=== PATIENT | male | born 1955 | race Caucasian/White ===

== ENCOUNTER 2017-05-15 07:15 | Day surgery (SDC) | payer BC ==
[2017-05-12 10:09] LABS: BASOPHILS 0.4 % (0-2); EOSINOPHILS 3.5 % (0-7); HEMATOCRIT 46.4 % (42.0-54.0); IMMATURE GRANULOCYTES 0.4 % (0-5); LYMPHOCYTES 29.9 % (15-50); MCHC 34.5 g/dL (31.0-37.0); MCV 86.9 fL (80.0-100.0); MEAN PLATELET VOLUME 10.1 fL (7.4-10.4); MONOCYTES 9.9 % (2-11); NEUTROPHILS 55.9 % (40-80); PLATELET COUNT 248 10x3/uL (130-400); RBC 5.34 10x6/uL (4.20-6.10); WBC 7.4 10x3/uL (4.8-10.8)
[2017-05-12 10:23] LABS: APTT 22.4 SECONDS (22.8-39.4); INR 0.92 (0.85-1.17); PROTIME 12.2 SECONDS (11.6-15.0)
[~2017-05-15] VITALS: Ht 167.6 cm; Wt 82.6 kg
[~2017-05-15 07:15] MED LIST: LISINOPRIL10 MG PO; MAG 6464 MG PO; PROSCAR5 MG PO; VITAMIN D31000 UNI2 PO; VITAMIN K PO
[2017-05-15 07:28] VITALS: BP 142/79; Ht 167.6 cm; Wt 82.6 kg
[2017-05-15] MEDS ORDERED: HYDROCODONE-APA1 TAB PO (10:32)
--- NOTE | 2017-05-15 16:05 | NUR ---
1305 DRESSED, AWAKE & ALERT. GIVEN DISCHARE INFORMATION INCLUDING: RX: NORCO 10/325MG, MED REC., PERIPHERAL NERVE BLOCK POST-OP INSTRUCTIONS [facility], [facility] OPS D/C INSTRUCTIONS, POST OP INSTRUCTIONS FOR ARTHROSCOPY OF THE SHOULDER. PENDULUM EXERCISE SHEET, & RTC APPT. PT VOICED UNDERSTANDING. TO PRIVATE CAR PER WHEELCHAIR BY VOLUNTEER. HOME WITH MOTHER. Ana CRISOSTOMO R.N.
--- NOTE | 2017-06-05 17:27 | OP ---
PATIENT NAME: MARTI EARL MEDICAL RECORD: [id number] :51 LOCATION:D.OPS ADMISSION DATE: SURGEON: QUYNH CANALES MD DATE OF OPERATION: 05/15/2017 Orthopedic Surgery Operative Note PREOPERATIVE DIAGNOSES: Rotator cuff tear of the left shoulder with acromioclavicular arthritis and impingement syndrome. POSTOPERATIVE DIAGNOSES: Rotator cuff tear of the left shoulder with acromioclavicular arthritis and impingement syndrome. PROCEDURES: 1. Left shoulder arthroscopy with arthroscopic rotator cuff repair. 2. Arthroscopic subacromial decompression with acromioplasty and bursectomy, arthroscopic distal clavicle excision -- 1 cm through separate incision. SURGEON: Quynh Canales MD ANESTHESIA: General. INTRAOPERATIVE COMPLICATIONS: None. SUMMARY OF PATHOLOGIC FINDINGS: Consistent with the patient's MRI. The patient has a full thickness rotator cuff tearing, grade III impingement with excoriation of the coracoacromial ligament as well as acromioclavicular arthritis. OPERATIVE SUMMARY IN DETAIL: After obtaining the appropriate preoperative orthopedic surgery consent as well as anesthetic consultation, evaluation and clearance, the patient was brought to the operating room and placed in the operating table in supine position. After adequate general laryngeal mask airway was administered, the patient was placed in a right lateral decubitus position. All pressure points were well padded to include down leg peroneal nerve pad as well as axillary roll. The patient was held firmly to the operating table using the vacuum pack suction system. Left upper extremity and shoulder were then prepped and draped in a routine sterile fashion. The arm was held in the [employer] traction boom at 30 degrees of forward flexion, 30 degrees of abduction with 10 pounds of traction laterally. Arthroscopy was established in the glenohumeral joint from a posterior portal. Anterior portal was established in the anterior safe interval. Diagnostic arthroscopy did reveal the above findings. A transrotator cuff portal was created for generalized rotator cuff cleanup as well as decortication of the medial aspect of the greater tuberosity footprint and supraspinatus tendon. Attention was then turned to the subacromial space. [place] tissue ablation system was utilized to denude the undersurface of the acromion of all soft tissue elements and released coracoacromial ligament. A 5-0 barrel bur was then used to perform acromioplasty at the level of acromioclavicular joint. Lastly, through a separate anterior arthroscopic portal under direct arthroscopic visualization, a 1-cm of distal clavicle was excised. Attention was then turned to the rotator cuff tear. Further decortication was carried out across the insertion of the supraspinatus tendon. A single #2 FiberTape was passed in an inverted mattress fashion, anchored laterally then with a single 5.5 SwiveLock from [employer]. Having completed this, arthroscopy portals were closed in routine interrupted OPERATIVE REPORT [id number] MARTI EARL fashion using 4-0 Prolene. Sterile dressings were applied. The patient was awakened, taken to recovery room in stable condition. All final needle and sponge counts were correct. 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
== END 2017-05-15 13:05 | disposition home or self-care (01) ==
LOC: D.OPS 07:15 → D.PAN 07:30 → D.OPS 07:30
PROVIDERS: Anesthesiology
DX: M75.102 Unspecified rotator cuff tear or rupture of left shoulder, not specified as traumatic (principal); M75.42 Impingement syndrome of left shoulder; I10 Essential (primary) hypertension; K21.9 Gastro-esophageal reflux disease without esophagitis; Z01.812 Encounter for preprocedural laboratory examination